=== PATIENT | female | born 1935 | race Caucasian/White ===

== ENCOUNTER 2017-08-19 17:57 | Emergency (ER) | payer OTHER ==
--- NOTE | 2017-08-19 18:29 | ED AMS/SEIZURE/WEAK/DIZZY ---
History of Present Illness General Chief Complaint: Dizziness Stated Complaint: NAUSEA/DIZZINESS Source: patient, family Exam Limitations: no limitations Allergies Coded Allergies: NO KNOWN ALLERGIES (08/19/17) Reconcile Medications Meclizine HCl 25 MG TABLET 1 TAB PO TIDPRN PRN vertigo Scopolamine 1 MG/3 DAY PATCH.TD.3 1 PATCH TOP Q72 PRN dizziness Triage Note: PER PT STARTED 20 MINUTES AGO WHILE SITTING WITH A WAVE OF NAUSEA AND LIGHTHEADEDNESS DOES NOT FEEL RIGHT, FELT LIKE PASSING OUT ATE WELL AT 12 NOON BUT Triage Nurses Notes Reviewed? yes Onset: Abrupt Duration: minute(s): (40) Timing: single episode today Injury Environment: home Severity: mild, severe No Modifying Factors: none HPI: This is an 82-year-old female who has history of high heart rate on metoprolol presents to the ER with her for chief complaint of an episode proximally 45 minutes prior to arrival at home of sudden onset of dizziness, room spinning, nausea and slight diaphoresis. She denies chest pain headache or blurred vision. She called her with a sense of urgency and felt she needed to be evaluated. According to the this is extremely unusual for her. She denies any fever chills, recent cough cold or ear infections or sinus infections. Denies any sick contacts or recent travel. Denies any change in medications. She does take [id number] calcium, vitamin D and multivitamin. Denies any significant alcohol use but tracks about 1 glass of wine per day. No recent trauma. No symptoms in the past similar to this episode today. She is pretty active and very healthy. She works out at the gym and does cardio about 3 or 4 times a week and never has chest pain or shortness of breath. Patient states most of the symptoms have gone at this time except she feels a very mild dizziness. She no longer feels nauseous. She never vomited. (Klever HAIR,Rekha) General Exam Limitations: no limitations Vital Signs & Intake/Output Vital Signs & Intake/Output Vital Signs Date Time Temp Pulse Resp B/P B/P Pulse O2 O2 Flow FiO2 Mean Ox Delivery Rate 08/19 1822 78 172/79 08/19 1820 98 Room Air 08/19 181 97.0 85 20 176/94 98 Room Air Triage Nurses Notes Reviewed? yes Onset: Just prior to arrival Duration: minute(s):, constant, gone now Timing: recent history Injury Environment: home Severity: moderate, severe Modifying Factors: Improves With: rest. Worsens With: movement. LMP (ages 10-50): post menopausal : No Patient currently breastfeeds: No HPI: Prior to admission while patient was seated he had an episode of dizziness nausea and sweating lasting several minutes with feeling of passing out that has now passed. She denies fever chills vomiting diarrhea abdominal pain chest pain cough shortness breath headache dysuria rash bleeding cough congestion change in hearing change in vision. (Finn Olivas MD) Past History Travel History Traveled to [place] past 21 day No Medical History Any Pertinent Medical History? see below for history Neurological: NONE EENT: NONE Cardiovascular: RAPID HR Respiratory: NONE Gastrointestinal: NONE Hepatic: NONE Renal: NONE Musculoskeletal: NONE Psychiatric: NONE Endocrine: NONE Surgical History Surgical History: non-contributory Psychosocial History What is your primary language Luxembourger Tobacco Use: Never used Family History Comment: FATHER - CVA MOTHER - Hx Contributory? Yes (Rekha Ernst MD) Medical History Any Pertinent Medical History? see below for history Cardiovascular: RAPID HR Surgical History Surgical History: non-contributory Family History Hx Contributory? No (Finn Olivas MD) Review of Systems Review of Systems Constitutional: Reports: diaphoresis. Denies: chills, fever. EENTM: Reports: no symptoms. Respiratory: Denies: cough, short of breath, sputum production. Cardiovascular: Reports: no symptoms. GI: Reports: nausea. Denies: abdominal pain, vomiting. Genitourinary: Denies: discharge, dysuria, frequency, hematuria. Musculoskeletal: Denies: back pain. Skin: Reports: no symptoms. Neurological/Psychological: Reports: see HPI (DIZZINESS), anxiety. Denies: confusion, headache. Hematologic/Endocrine: Reports: no symptoms. Immunologic/Allergic: Reports: no symptoms. All Other Systems: Reviewed and Negative (Rekha Ernst MD) Review of Systems Constitutional: Reports: see HPI, weakness. EENTM: Reports: no symptoms. Respiratory: Reports: no symptoms. Cardiovascular: Reports: no symptoms. GI: Reports: no symptoms. Genitourinary: Reports: no symptoms. Musculoskeletal: Reports: no symptoms. Skin: Reports: no symptoms. Neurological/Psychological: Reports: see HPI. Hematologic/Endocrine: Reports: no symptoms. Immunologic/Allergic: Reports: no symptoms. All Other Systems: Reviewed and Negative (Finn Olivas MD) Physical Exam Physical Exam General Appearance: well developed/nourished, alert, anxious Head: atraumatic, normal appearance Eyes: Bilateral: normal appearance, PERRL, EOMI. Ears, Nose, Throat: normal pharynx, normal ENT inspection, hearing grossly normal Neck: normal inspection, supple, full range of motion Respiratory: normal breath sounds, chest non-tender, quiet respiration Cardiovascular: regular rate/rhythm, normal peripheral pulses Peripheral Pulses: 2+ radial (R), 2+ radial (L) Gastrointestinal: normal bowel sounds, soft, non-tender Back: normal inspection, normal range of motion Extremities: normal range of motion Neurologic/Psych: no motor/sensory deficits, awake, alert, oriented x 3 Skin: intact, normal color, warm/dry Core Measures ACS in differential dx? Yes CVA/TIA Diagnosis No Sepsis Present: No Sepsis Focused Exam Completed? No (Klever HAIR,Rekha) Physical Exam General Appearance: well developed/nourished, alert, awake, anxious, mild distress Head: atraumatic, normal appearance Eyes: Bilateral: normal appearance, PERRL, EOMI. Ears, Nose, Throat: normal pharynx, normal ENT inspection, hearing grossly normal Neck: normal inspection, supple, full range of motion, no midline tenderness Respiratory: normal breath sounds, chest non-tender, no respiratory distress, quiet respiration, lungs clear Cardiovascular: regular rate/rhythm, normal peripheral pulses, norml femoral pulses equa Peripheral Pulses: 4+ carotid (R), 4+ carotid (L) Gastrointestinal: normal bowel sounds, soft, non-tender, no organomegaly Back: normal inspection, normal range of motion Extremities: normal range of motion, no ligament instability Neurologic/Psych: no motor/sensory deficits, awake, alert, oriented x 3, normal gait, normal mood/affect, sandwich maker II-XII nml as tested Reflexes: 2+: bicep (R), bicep (L). Skin: intact, normal color, warm/dry Lymphatic: no anterior cervical adis Core Measures ACS in differential dx? No CVA/TIA Diagnosis No Sepsis Present: No Sepsis Focused Exam Completed? No (Deisy HAIR,Finn) Progress Differential Diagnosis: arrythmia, anemia, benign positional vertigo, CVA/stroke , dehydration, encephalitis, electrolyte imbalance, intracranial Hem., intracranial mass/tumor, postural hypotension, subarachnoid Hem., vertebrobasilar insuff Diagnostic Imaging: Viewed by Me: CT Scan. Discussed w/RAD: CT Scan. Initial ED EKG: NSR Hand-Off Endorsed To: Finn Olivas MD Endorsed Time: 1899 Pending: CT, labs (Rekha Ernst MD) Differential Diagnosis: benign positional vertigo, CVA/stroke, electrolyte imbalance, hypoxia Plan of Care: Orders Procedure Date/time Status Telemetry/Waste Baler 08/20 1827 Active URINALYSIS 08/20 1827 Active THYROID STIMULATING HORMONE 08/20 1827 Active TROPONIN LEVEL 08/20 1827 Active MAGNESIUM 08/20 1827 Active FREE T4 08/20 1827 Active COMPREHENSIVE METABOLIC PANEL 08/20 1827 Active CBC WITHOUT DIFFERENTIAL 08/[address] HEAD WO IV CONTRAST 08/20 1827 Active EKG 08/19 180 Active Laboratory Tests 08/19/17 1647: Sodium Pending, Potassium Pending, Chloride Pending, Carbon Dioxide Pending, Anion Gap Pending, BUN Pending, Creatinine Pending, BUN/Creatinine Ratio Pending , Glucose Pending, Calcium Pending, Magnesium Pending, Total Bilirubin Pending, AST Pending, ALT Pending, Alkaline Phosphatase Pending, Troponin I Pending, Total Protein Pending, Albumin Pending, Globulin Pending, Albumin/Globulin Ratio Pending, TSH Pending, Free T4 Pending, CBC w Diff Pending, WBC Pending, RBC Pending, Hgb Pending, Hct Pending, MCV Pending, MCH Pending, MCHC Pending, RDW Pending, Plt Count Pending, MPV Pending Diagnostic Imaging: Viewed by Me: CT Scan. Discussed w/RAD: CT Scan. Radiology Impression: no acute abnormality Initial ED EKG: normal axis, normal intervals, normal p-waves, normal QRS complex, normal sinus rhythm, no ST T wave changes Rhythm Strip: normal sinus rhythm (Finn Olivas MD) Departure Departure Disposition: STILL A PATIENT Condition: Stable Clinical Impression Primary Impression: Dizziness Referrals: Mathew Santos MD Departure Forms: Customer Survey General Discharge Information Prescriptions: Current Visit Scripts Scopolamine 1 PATCH TOP Q72 PRN dizziness #4 PATCH Meclizine HCl 1 TAB PO TIDPRN PRN vertigo #30 TAB (Klever HAIR,Rekha) Departure Time of Disposition: 2040 (Deisy HAIR,Finn)
[2017-08-19 19:01] LABS: ABSOLUTE BASOPHIL COUNT 0 /CUMM (0.0-0.2); ABSOLUTE EOSINOPHIL COUNT 0.2 /CUMM (0.0-0.7); ABSOLUTE LYMPH COUNT 1.4 /CUMM (1.2-3.4); ABSOLUTE MONOCYTE COUNT 0.5 /CUMM (0.10-0.60); BASOPHIL % 0.6 % (0.0-2.0); EOSINOPHIL % 3.8 % (0-5); GRANULOCYTE % 48.9 % (42.2-75.2); HEMATOCRIT 38.7 % (37-47); MEAN CORPUSCULAR HGB 30.8 PG (27.0-31.0); MEAN CORPUSCULAR VOLUME 93.4 FL (81.0-99.0); MEAN PLATELET VOLUME 8.2 FL (7.4-10.4); PLATELET COUNT 262 /CUMM (130-400); RED BLOOD CELL CT 4.14 /CUMM (4.20-5.40); WHITE BLOOD CELL COUNT 4.1 /CUMM (4.8-10.8)
--- NOTE | 2017-08-19 19:14 | CT SCAN REPORT ---
EXAMINATION: CT HEAD WITHOUT CONTRAST CLINICAL INFORMATION: 82-year-old woman with sudden onset of dizziness. COMPARISON: None TECHNIQUE: Contiguous axial imaging was performed from the skull base to vertex without intravenous administration of contrast. DLP: 891 mGy-cm FINDINGS: There is no evidence of acute intracranial hemorrhage or territorial infarction. No abnormal mass effect or midline shift is seen. Sánchez to white matter differentiation is well preserved. No extra-axial fluid collections are identified. The ventricles are normal in size. There is no abnormal attenuation within the brain parenchyma. The osseous structures and soft tissues are normal. The mastoid air cells and visualized portions of the paranasal sinuses are well aerated. IMPRESSION: No acute intracranial pathology.
[2017-08-19] MEDS ORDERED: MECLIZINE HCL25 MG PO ×2 (19:46→21:29)
[2017-08-19] MEDS ORDERED: SCOPOLAMINE1 EAC1 TOP ×2 (19:46→21:29)
[2017-08-19 20:53] VITALS: BP 170/78
== END 2017-08-19 21:00 ==
LOC: ERH 17:57
PROVIDERS: Emergency Medicine
DX: R42 Dizziness and giddiness (principal)
CPT/HCPCS: 81003; 93005; 93010